=== PATIENT | female | born 1950 | race Caucasian/White ===

== ENCOUNTER 2019-06-18 08:31 | Emergency (ER) | payer OTHER ==
[2019-06-18 09:02] VITALS: BP 107/55
--- NOTE | 2019-06-18 09:16 | UC ---
General HPI - HPI Summary HPI Summary: 68-year-old female comes in with a chief complaint of having no Coumadin. Patient has an artificial aortic valve and she reports that she takes 10 mg of Coumadin each evening. She is here and [place] visiting her sister and she forgot to bring her Coumadin. She discovered this last evening. The last time she took Coumadin was 2 evenings ago. Patient feels well otherwise. Patient is going back home tomorrow in the evening. She has Coumadin at her home residence. - History of Current Complaint Chief Complaint: UCMedRefill Stated Complaint: MEDICATION NEED Time Seen by Provider: 06/18/19 08:59 Pain Intensity: 0 - Allergy/Home Medications Allergies/Adverse Reactions: Allergies Allergy/AdvReac Type Severity Reaction Status Date / Time ciprofloxacin Allergy Rash Verified 06/18/19 09:02 Home Medications: Home Medications ARIPiprazole TAB* [Abilify TAB*] 5 mg PO DAILY 06/18/19 [History Confirmed ] Nortriptyline CAP* [Pamelor CAP*] 25 mg PO BEDTIME 06/18/19 [History Confirmed 06/18/19] Warfarin Sodium [Coumadin] 10 mg PO DAILY 06/18/19 [History Confirmed 06/18/19] lamoTRIgine [Lamictal] 25 mg PO BEDTIME 06/18/19 [History Confirmed 06/18/19] PMH/Surg Hx/FS Hx/Imm Hx Previously Healthy: Yes Other Cardiovascular History: mechanical aortic valve - Surgical History Surgical History: Yes Surgery Procedure, Year, and Place: valve replacement - Family History Known Family History: Positive: Non-Contributory - Social History Alcohol Use: None Substance Use Type: None Smoking Status (MU): Never Smoked Tobacco Review of Systems All Other Systems Reviewed And Are Negative: Yes Constitutional: Positive: Negative Skin: Positive: Negative Eyes: Positive: Negative ENT: Positive: Negative Respiratory: Positive: Negative Cardiovascular: Positive: Negative Gastrointestinal: Positive: Negative Motor: Positive: Negative Neurovascular: Positive: Negative Musculoskeletal: Positive: Negative Neurological: Positive: Negative Psychological: Positive: Negative Is Patient Immunocompromised?: No Physical Exam Triage Information Reviewed: Yes Appearance: Well-Appearing, No Pain Distress, Well-Nourished Vital Signs: Initial Vital Signs Temp 97.8 F 06/18/19 08:57 Pulse 75 06/18/19 08:57 Resp 18 06/18/19 08:57 BP 107/55 06/18/19 08:57 Pulse Ox 100 06/18/19 08:57 Vital Signs Reviewed: Yes Eye Exam: Normal Eyes: Positive: Conjunctiva Clear Neck: Positive: Supple Respiratory: Positive: Lungs clear Cardiovascular: Positive: RRR, Other: - Mechanical valve click and murmur. Musculoskeletal: Positive: Strength Intact, ROM Intact, No Edema Psychological: Positive: Age Appropriate Behavior Skin Exam: Normal Course/Dx - Course Course Of Treatment: I wrote a prescription for Coumadin 10 mg total number of 3 to cover the patient until she can get home actor her own medications. - Diagnoses Provider Diagnosis: Anticoagulated on Coumadin Discharge ED - Sign-Out/Discharge Documenting (check all that apply): Patient Departure All imaging exams completed and their final reports reviewed: No Studies - Discharge Plan Condition: Stable Disposition: HOME Prescriptions: Warfarin Sodium [Coumadin] 10 mg PO DAILY #3 tablet Patient Education Materials: Warfarin (By mouth) Referrals: [facility] [Outside] Additional Instructions: FOLLOW UP WITH YOUR DOCTOR IF NOT COMPLETELY IMPROVED. GET REEVALUATED SOONER IF NOT IMPROVING OR YOUR CONDITION WORSENS OR ANY QUESTIONS OR CONCERNS - Billing Disposition and Condition Condition: STABLE Disposition: Home
== END 2019-06-18 09:21 | disposition home or self-care (01) ==
LOC: UCCORT 08:31
DX: Z76.0 Encounter for issue of repeat prescription (principal); Z95.2 Presence of prosthetic heart valve; Z79.01 Long term (current) use of anticoagulants
CPT/HCPCS: 99202; G0463